=== PATIENT | male | born 1950 | race Caucasian/White ===

== ENCOUNTER 2021-02-10 16:56 | Inpatient (IN) | payer MEDICARE ==
[~2021-02-10] VITALS: Ht 170.2 cm; Wt 65.0 kg
[2021-02-10 17:17] VITALS: BP 90/41
--- NOTE | 2021-02-10 18:24 | NUR ---
MULTIPLE ATTEMPTS HAVE BEEN MADE TO ESTABLISH IV BY SEVERAL NURSES, PATIENT REFUSED ANY LONGER BUT STATES HE WANTS TO STAY AND AGREES TO NURSE LOOKING WITH ULTRASOUND. PATIENT REQUESTS ANOTHER SANDWICH AT THIS TIME. PATIENT AWAKE AND ALERT, NO DISTRESS NOTED. PATIENT KEEPS INSISTING ON NURSE TO TRY AND IV IN HIS LEG AND IS BEING LESS THAN COOPERATIVE AT THIS TIME AND NOT WANTING TO STAY ON THE MONITOR. NO DISTERSS NOTED
[2021-02-10 19:09] LABS: APTT 31.8 SECONDS (22.8-39.4); INR 1.15 (0.85-1.17); PROTIME 13.6 SECONDS (11.6-15.0)
[2021-02-10 19:16] LABS: BASOPHILS 0.2 % (0-2); HEMATOCRIT 32.1 % (42.0-54.0); HEMOGLOBIN 10.8 g/dL (13.5-17.5); IMMATURE GRANULOCYTES 0.2 % (0-5); LYMPHOCYTE ABS# 1.54 10x3/uL (1.32-3.57); LYMPHOCYTES 15.2 % (15-50); MCHC 33.6 g/dL (31.0-37.0); MCV 86.1 fL (80.0-100.0); MEAN PLATELET VOLUME 9.8 fL (7.4-10.4); MONOCYTES 8.2 % (2-11); NEUTROPHIL ABS# 7.51 10x3/uL (1.78-5.38); NEUTROPHILS 74.2 % (40-80); PLATELET COUNT 242 10x3/uL (130-400); RBC 3.73 10x6/uL (4.20-6.10); RDW 14.1 % (11.5-14.5); WBC 10.1 10x3/uL (4.8-10.8)
[2021-02-10 19:28] LABS: ALKALINE PHOSPHATASE 125 U/L (30-120); ALT (SGPT) 49 U/L (10-68); CALCIUM 8.2 mg/dL (8.5-10.1); CARBON DIOXIDE 26.2 mmol/L (21.0-32.0); CHLORIDE - SERUM 89 mmol/L (98-107); CKMB 11.5 U/L (0.0-3.6); CREATINE KINASE 357 UL (21-232); CREATININE - SERUM 1.2 mg/dL (0.6-1.3); GLUCOSE 110 mg/dL (74-106); MAGNESIUM - SERUM 1.9 mg/dL (1.8-2.4); POTASSIUM - SERUM 3.9 mmol/L (3.5-5.1); PROTEIN - SERUM 6.4 g/dL (6.4-8.2); THYROID STIMULATING HORMONE 3.21 uIU/mL (0.36-3.74); UREA NITROGEN 16 mg/dL (7-18); eGFR NON AFRICAN AMERICAN 64 mL/min (90-120)
[2021-02-10 19:33] LABS: CALC OSMOLALITY 241 mosm/kg (275-300); TROPONIN-I < 0.017 ng/mL (0.000-0.060)
[2021-02-10 19:36] LABS: SODIUM 119 mmol/L (136-145)
[2021-02-10 23:51] VITALS: BP 116/63
--- NOTE | 2021-02-11 03:22 | NUR ---
I have reviewed this patient and I concur with the Shift Assessment completed by the Licensed Practical Nurse today this shift.
[2021-02-11 03:45] VITALS: BP 114/67
[2021-02-11 05:09] LABS: BASOPHILS 0.2 % (0-2); EOSINOPHILS 2.9 % (0-7); HEMATOCRIT 32.4 % (42.0-54.0); HEMOGLOBIN 10.9 g/dL (13.5-17.5); IMMATURE GRANULOCYTES 0.2 % (0-5); LYMPHOCYTE ABS# 1.55 10x3/uL (1.32-3.57); LYMPHOCYTES 18.3 % (15-50); MCH 29.1 pg (26.0-34.0); MCHC 33.6 g/dL (31.0-37.0); MCV 86.4 fL (80.0-100.0); MEAN PLATELET VOLUME 9.8 fL (7.4-10.4); MONOCYTES 6.6 % (2-11); NEUTROPHIL ABS# 6.09 10x3/uL (1.78-5.38); NEUTROPHILS 71.8 % (40-80); PLATELET COUNT 226 10x3/uL (130-400); RBC 3.75 10x6/uL (4.20-6.10); RDW 14.3 % (11.5-14.5); RETIC 1.86 % (0.45-2.28); WBC 8.5 10x3/uL (4.8-10.8)
[2021-02-11 05:10] LABS: BILIRUBIN NEGATIVE (NEGATIVE); KETONE NEGATIVE (NEGATIVE); NITRITE NEGATIVE (NEGATIVE); UROBILINOGEN NORMAL mg/dL (< 2)
[2021-02-11 05:23] LABS: INR 1.14 (0.85-1.17); PROTIME 13.5 SECONDS (11.6-15.0)
[2021-02-11 05:41] LABS: UDS - AMPHET NEGATIVE QUAL (NEGATIVE); UDS - BARB NEGATIVE QUAL (NEGATIVE); UDS - BENZO NEGATIVE QUAL (NEGATIVE); UDS - COCAINE NEGATIVE QUAL (NEGATIVE); UDS - OPIATE NEGATIVE QUAL (NEGATIVE); UDS - PCP NEGATIVE QUAL (NEGATIVE); UDS - THC POSITIVE QUAL (NEGATIVE)
[2021-02-11 05:44] LABS: % SATURATION 10 % (15-55); IRON 31 ug/dl (35-150); TOTAL IRON BIND CAPACITY 296 ug/dl (260-445); UNSAT IRON BIND CAPACITY 265 ug/dl (150-375)
--- NOTE | 2021-02-11 06:19 | NUR ---
PT REFUSES TO WEAR TELEMETRY AND SCD'S AT THIS TIME. PT HAS LEFT FOOT IV AND SWOLLEN FEET. WILL CONTIONUE TO MONITOR.
[2021-02-11 06:20] LABS: ALBUMIN 2.7 g/dL (3.4-5.0); ALKALINE PHOSPHATASE 117 U/L (30-120); ALT (SGPT) 46 U/L (10-68); BILIRUBIN - TOTAL 0.48 mg/dL (0.2-1.3); CALC OSMOLALITY 245 mosm/kg (275-300); CALCIUM 7.6 mg/dL (8.5-10.1); CARBON DIOXIDE 23.8 mmol/L (21.0-32.0); CHLORIDE - SERUM 92 mmol/L (98-107); CHOL - HDL RATIO 2.1 ratio (2.3-4.9); CHOLESTEROL, TOTAL 113 mg/dL (0-200); CKMB 6.6 U/L (0.0-3.6); CREATINE KINASE 215 UL (21-232); CREATININE - SERUM 0.9 mg/dL (0.6-1.3); FERRITIN 155 ng/mL (3-244); GLUCOSE 78 mg/dL (74-106); HDL CHOLESTEROL 53 mg/dL (32-96); LDH 201 U/L (85-227); LDL CHOLESTEROL 51 mg/dL (0-100); PHOSPHOROUS 4.1 mg/dL (2.5-4.9); POTASSIUM - SERUM 3.9 mmol/L (3.5-5.1); PRO BNP 540 pg/mL (0-125); SODIUM 122 mmol/L (136-145); TRIGLYCERIDE 47 mg/dL (30-200); TROPONIN-I < 0.017 ng/mL (0.000-0.060); UREA NITROGEN 15 mg/dL (7-18); eGFR NON AFRICAN AMERICAN 89 mL/min (90-120)
--- NOTE | 2021-02-11 08:39 | NUR ---
PT LYING IN BED WITH EYES CLOSED, RR EVEN NON LABORED. AUDIBLE SNORING NOTED. PT AWAKENS TO STIMULI. NO NEEDS VOICED.CLWR.
[2021-02-11 08:59] VITALS: BP 138/61
[2021-02-11 10:56] VITALS: Ht 170.2 cm; Wt 65.0 kg
[2021-02-11 12:19] VITALS: BP 134/71
--- NOTE | 2021-02-11 13:04 | NUR ---
PT LYING ON LEFT SIDE, RR EVEN NON LABORED. AUDIBLE SNORING NOTED AT THIS TIME. PT APPEARS TO BE RESTING COMFORTABLY. CLWR.
--- NOTE | 2021-02-11 15:46 | NUR ---
PT LYING IN SUPINE POSITION, HOB RAISED, RR EVEN NON LABORED. NO NEEDS VOICED. CLWR.
[2021-02-11 17:41] VITALS: BP 136/78
--- NOTE | 2021-02-11 18:00 | NUR ---
PT REQUESTED NURSE FROM [facility] AT THIS TIME. WHEN ENTERING ROOM PT WAS CRYING AND UPSET. ATTEMPTED TO CONSOLE THE PT. PT INSISTED HE WANTED TO LEAVE. WHEN NURSE ASKED WHAT SHE COULD DO FOR THE PT HE RESPONDED, "GET ME SOMETHING SHARP" HE THEN STATED, "A RAZORBLADE." ASKED PT IF HAD INTENTIONS OF HARMING HIMSELF, PT STATES "ALL THE TIME" AND CHUCKLED WHILE CRYING. PT AMBULATING AND ATTEMPTING TO EXIT THE ROOM. MULTIPLE NURSES IN ROOM AT THIS TIME INCLUDING CHARGE NURSE. PT ASSISTED BACK IN ROOM INTO CHAIR, CONSOLED PT. BEHAVIORAL HEALTH NURSE NOTIFIED, KATHIE MARIE NOTIFIED ALSO.
--- NOTE | 2021-02-11 18:30 | NUR ---
BEHAVIORAL NURSE AND PCT AT BEDSIDE, ALL HAZARD OBJECTS AND CLOTHING REMOVED FROM ROOM. PT PLACED IN PAPER SCRUBS. NOTIFIED KATHIE MARIE REGARDING NEED FOR SITTER D/T SCREENED POSITIVE FOR SUICIDE RISK. NO FURTHER ORDERS AT THIS TIME.
--- NOTE | 2021-02-11 18:41 | NUR ---
DR. HERNDON NOTIFIED AND SITTER ORDERED. SITTER AT BEDSIDE. NOTIFIED CHARGE NURSE AND ATTENDING MD IN REGARDS TO ASSESSMENT FINDINGS. RESOURCES GIVEN AND PT REFUSED SAFETY PLAN X 3. PT STATES " I HAVE NO REASON TO LIVE."
--- NOTE | 2021-02-11 19:00 | NUR ---
LYING IN BED W/EYES CLOSED, RESP EVEN AND UNLABORED ON RA. NO DISTRESS NOTED. SITTER AT BEDSIDE FOR PT'S SUICIDE WATCH. NO DISTRESS NOTED AT THIS TIME.
[2021-02-11 21:10] VITALS: BP 146/85
--- NOTE | 2021-02-11 21:13 | NUR ---
PT AWAKE, ALERT, ORIENTED. PLEASENT--REFUSES TO HAVE IV RESTARTED--THIS NURSE VERBALLY EXPLAINS THE BENEFITS AND THE RISKS OF NOT HAVING TREATMENT PRESCRIBED W/PT UNDERSTANDING STATED--PT CONTINUES TO REFUSE. DENIES ANY FURTHER NEEDS. SITTER AT BEDSIDE FOR SUICIDE WATCH.
[2021-02-12 05:01] LABS: BASOPHILS 0.3 % (0-2); EOSINOPHILS 3.1 % (0-7); HEMATOCRIT 32.9 % (42.0-54.0); HEMOGLOBIN 10.8 g/dL (13.5-17.5); IMMATURE GRANULOCYTES 0.5 % (0-5); LYMPHOCYTE ABS# 1.26 10x3/uL (1.32-3.57); LYMPHOCYTES 20.7 % (15-50); MCH 29.3 pg (26.0-34.0); MCHC 32.8 g/dL (31.0-37.0); MEAN PLATELET VOLUME 9.9 fL (7.4-10.4); MONOCYTES 8.9 % (2-11); NEUTROPHIL ABS# 4.04 10x3/uL (1.78-5.38); NEUTROPHILS 66.5 % (40-80); PLATELET COUNT 185 10x3/uL (130-400); RBC 3.69 10x6/uL (4.20-6.10); RDW 14.5 % (11.5-14.5)
[2021-02-12 05:14] LABS: MCV 89.2 fL (80.0-100.0); WBC 6.1 10x3/uL (4.8-10.8)
--- NOTE | 2021-02-12 05:30 | NUR ---
LYING IN BED W/EYES CLOSED, RESP EVEN AND UNLABORED ON RA W/SNORRING NOTED. NO DISTRESS NOTED.
--- NOTE | 2021-02-12 05:32 | NUR ---
PT'S SUICIDE WATCH CONTINUES W/SITTER AT BEDSIDE. PT HAS RESTED WELL TONIGHT W/O EPISODES.
[2021-02-12 05:38] LABS: ALBUMIN 2.8 g/dL (3.4-5.0); ALKALINE PHOSPHATASE 124 U/L (30-120); ALT (SGPT) 47 U/L (10-68); BILIRUBIN - TOTAL 0.33 mg/dL (0.2-1.3); CALC OSMOLALITY 251 mosm/kg (275-300); CARBON DIOXIDE 23.8 mmol/L (21.0-32.0); CHLORIDE - SERUM 96 mmol/L (98-107); CREATININE - SERUM 0.8 mg/dL (0.6-1.3); GLUCOSE 79 mg/dL (74-106); PHOSPHOROUS 3.3 mg/dL (2.5-4.9); POTASSIUM - SERUM 4.1 mmol/L (3.5-5.1); PROTEIN - SERUM 6.3 g/dL (6.4-8.2); SODIUM 125 mmol/L (136-145); UREA NITROGEN 15 mg/dL (7-18); eGFR NON AFRICAN AMERICAN > 90 mL/min (90-120)
--- NOTE | 2021-02-12 07:30 | NUR ---
PT LYING IN BED WITH EYES CLOSED, RR EVEN NON LABORED ON ROOM AIR. PT APPEARS TO BE RESTING COMFORTABLY WITH AUDIBLE SNORING NOTED. SITTER AT BEDSIDE. WILL CONTINUE TO MONITOR.
[2021-02-12 08:00] VITALS: BP 137/77
--- NOTE | 2021-02-12 08:25 | NUR ---
PT SITTING ON SIDE OF BED EATING BREAKFAST. PT REQUESTED MORE MILK, EDUCATION PROVIDED REGARDING 1500ML FLUID RESTRICTION. PT NEEDS FURTHER INSTRUCTION. NO NEEDS VOICED, SITTER AT BEDSIDE. CLWR.
--- NOTE | 2021-02-12 09:38 | NUR ---
NOTIFIED DR LOMAX REGARDING PT REFUSING IV PLACEMENT. DR LOMAX REQUESTED PYSCH CONSULT BE PLACED D/T UNABLE TO TREAT HIS LOW SODIUM WITH IV FLUIDS AND TO ADD SALT TO MEALS. ORDER READ BACK AND VERIFIED.
--- NOTE | 2021-02-12 10:56 | NUR ---
PT DEMANDING PHONE AT THIS TIME. PT EXITED ROOM ASKING FOR A PHONE. EDUCATION GIVEN TO PT REGARDING WHY HE IS NOT ALLOWED TO HAVE A PHONE AT THIS TIME. PT AGGRAVATED AND ASSISTED BACK TO HIS ROOM.
--- NOTE | 2021-02-12 11:56 | NUR ---
PT LYING IN BED WITH HOB RAISED, PT RR EVEN NON LABORED. PT STATES HE WILL TAKE MEDICATION. PT SPOKE OF A PHONE BUT APPEARS LESS AGIGATED. PT AMBULATED TO RESTROOM. NO NEEDS VOICED. CLWR.
--- NOTE | 2021-02-12 14:36 | NUR ---
PT TOOK PO MEDICATION WITHOUT DIFFICULTY, PT AWAKE AND ALERT. PT LYING IN BED WITH HOB RAISED WATCHING TV, NO NEEDS VOICED. CLWR.
[2021-02-12 15:00] VITALS: BP 121/76
--- NOTE | 2021-02-12 15:38 | NUR ---
PT REQUESTED ATIVAN AT THIS TIME. PT LYING IN BED WATCHING TV. RR EVEN NON LABORED. PT WILL SLEEP FOR PERIODS OF TIME. PT TALKS ABOUT GETTING HELP AND GETTING HIM A PLACE TO GO. PT DENIES ANY NEEDS, CLWR.
--- NOTE | 2021-02-12 17:39 | NUR ---
PT SITTING UP IN BED EATING DINNER TRAY. RR EVEN NON LABORED. PT AWAKE AND ALERT, CALM AT THIS TIME. CLWR. SITTER AT BEDSIDE.
--- NOTE | 2021-02-12 19:00 | NUR ---
LYING IN BED W/EYES CLOSED, RESP EVEN AND UNLABORED ON RA. SITTER AT BEDSIDE FOR SUICIDE WATCH, NO DISTRESS NOTED.
[2021-02-12 22:31] VITALS: BP 152/81
--- NOTE | 2021-02-12 23:42 | NUR ---
SARA PARADA REPORTS PT FELL IN ROOM. SEE NOTES PLEASE. UPON ASSESSMENT OF PT--NO WOUNDS, BRUISES, FOUND ON. PT C/O PAIN TO LEFT FA--PT C/O PAIN TO THIS AREA EARLIER THIS JUANITA PRIOR TO FALLING AND NURSE GAVE TYLENOL FOR THAT. WILL CONTACT PT'S DOCTOR AND REPORT THE FALL, PT HAS NO FAMILY TO CONTACT.
--- NOTE | 2021-02-13 00:04 | NUR ---
CONTACTED KATHIE AND REPORTED PT'S FALL--REPORTED THAT PT NOW C/O PAIN WORSE TO LEFT FA AND ELBOW AREA. NEW ORDERS FOR XRAY OF LEFT FA AND ELBOW.
[2021-02-13 00:51] VITALS: BP 147/92
--- NOTE | 2021-02-13 01:14 | NUR ---
THIS NURSE RESPONDED TO PTS ROOM WHEN ALERTED BY PLATE DRILLER THAT SHE NEEDED HELP. UPON ENTERING THE ROOM, PT WAS OBSERVED ON THE FLOOR SITTING ON HIS BOTTOM WITH HIS LEGS OUT IN FRONT OF HIM. THE PLATE DRILLER STATED THAT HE SLID TO HIS BOTTOM WHILE TRYING TO SIT DOWN ON HIS BED. ASSESSED THE PT ON THE FLOOR, NO S/S OF TRAUMA OR INJURY OBSERVED. ASSISTED PT BACK TO BED. REASSESSED PT, NO S/S OF TRAUMA OR INJURY NOTED. PLATE DRILLER STATED THAT THE PT DID NOT HIT HIS HEAD DURING HIS FALL. NOTIFIED PTS NURSE OF INCIDENT.
[2021-02-13 04:54] VITALS: BP 148/94
[2021-02-13 05:23] LABS: BASOPHILS 0.3 % (0-2); EOSINOPHILS 2.7 % (0-7); HEMATOCRIT 35.5 % (42.0-54.0); HEMOGLOBIN 11.9 g/dL (13.5-17.5); IMMATURE GRANULOCYTES 0.5 % (0-5); LYMPHOCYTE ABS# 1.36 10x3/uL (1.32-3.57); LYMPHOCYTES 17.8 % (15-50); MCH 29.4 pg (26.0-34.0); MCHC 33.5 g/dL (31.0-37.0); MCV 87.7 fL (80.0-100.0); MEAN PLATELET VOLUME 9.9 fL (7.4-10.4); NEUTROPHIL ABS# 5.41 10x3/uL (1.78-5.38); NEUTROPHILS 70.7 % (40-80); PLATELET COUNT 210 10x3/uL (130-400); RBC 4.05 10x6/uL (4.20-6.10); RDW 14.1 % (11.5-14.5)
[2021-02-13 05:37] LABS: WBC 7.7 10x3/uL (4.8-10.8)
[2021-02-13 05:47] LABS: ALKALINE PHOSPHATASE 122 U/L (30-120); ALT (SGPT) 44 U/L (10-68); BILIRUBIN - TOTAL 0.43 mg/dL (0.2-1.3); CALC OSMOLALITY 249 mosm/kg (275-300); CALCIUM 8.4 mg/dL (8.5-10.1); CARBON DIOXIDE 26.5 mmol/L (21.0-32.0); CHLORIDE - SERUM 92 mmol/L (98-107); CREATININE - SERUM 0.7 mg/dL (0.6-1.3); GLUCOSE 80 mg/dL (74-106); MAGNESIUM - SERUM 1.8 mg/dL (1.8-2.4); PHOSPHOROUS 3.4 mg/dL (2.5-4.9); POTASSIUM - SERUM 4.2 mmol/L (3.5-5.1); PROTEIN - SERUM 6.7 g/dL (6.4-8.2); SODIUM 125 mmol/L (136-145); eGFR NON AFRICAN AMERICAN > 90 mL/min (90-120)
[2021-02-13 05:49] LABS: UREA NITROGEN 11 mg/dL (7-18)
--- NOTE | 2021-02-13 09:59 | NUR ---
Nutrition Follow-up: Eating well. Noted pt NPO p MN for L ulna ORIF. Diet: Regular, 1500 mL fluid restriction PO intake: 92% avg x 6 meals (02/11-02/12) No new wt; last wt: 150# (02/11) Labs noted: Na 125, Ca 8.4, Alb 3.0 Meds noted: sodium chloride, Protonix, NS @ 75, electrolyte protocol -RD will follow up within 7 days if pt still admitted.
[2021-02-13 10:19] VITALS: BP 139/82
[2021-02-13 12:49] VITALS: BP 165/94
[2021-02-13 16:24] VITALS: BP 152/91
--- NOTE | 2021-02-13 17:46 | NUR ---
HALDOL 5MG/ATIVAN 2MG GIVEN IM TO RIGHT DELTOID. PT REQUESTING TO LEAVE SO HE CAN GO OUTSIDE TO SMOKE A CIGARETTED & SOME POT, MAYBE DRINK A FEW BEERS & THEN HE WOULDBE BACK TOMORROW FOR HIS SURGERY. UNSTEADY GAIT WITH AMBULATION TO RESTROOM. HAD TO SIT TO USE THE BATHROOM. SITTER REMAINS AT BEDSIDE FOR SUICIDE WATCH.
--- NOTE | 2021-02-13 19:04 | NUR ---
LYING IN BED W/EYES CLOSED, RESP EVEN AND UNLABORED ON RA. SITTER SITTING AT DOOR--PT ON SUICIDE WATCH AND FALL PREC. NO DISTRESS NOTED.
[2021-02-13 20:00] VITALS: BP 148/90
[2021-02-14 03:00] VITALS: BP 150/93
--- NOTE | 2021-02-14 03:25 | NUR ---
EKG COMPLETED AT THIS TIME FOR PT'S ORIF THIS AM.
--- NOTE | 2021-02-14 04:45 | NUR ---
BRICK HANDLER GIVING PT CHG BATH AT THIS TIME FOR ORIF TODAY.
[2021-02-14 05:05] LABS: BASOPHILS 0.4 % (0-2); EOSINOPHILS 1.7 % (0-7); HEMATOCRIT 35.5 % (42.0-54.0); HEMOGLOBIN 12.2 g/dL (13.5-17.5); IMMATURE GRANULOCYTES 0.4 % (0-5); LYMPHOCYTE ABS# 1.12 10x3/uL (1.32-3.57); LYMPHOCYTES 14.4 % (15-50); MCH 29.8 pg (26.0-34.0); MCHC 34.4 g/dL (31.0-37.0); MCV 86.6 fL (80.0-100.0); MEAN PLATELET VOLUME 9.4 fL (7.4-10.4); NEUTROPHIL ABS# 5.91 10x3/uL (1.78-5.38); NEUTROPHILS 76.1 % (40-80); WBC 7.8 10x3/uL (4.8-10.8)
[2021-02-14 05:36] LABS: PLATELET COUNT 262 10x3/uL (130-400)
--- NOTE | 2021-02-14 05:49 | NUR ---
LYING IN BED W/EYES CLOSED, RESP EVEN AND UNLABORED ON RA. AROUSED EASILY W/VERBAL STIMULI. IV STARTED TO RIGHT UPPER ARM W/20GA X'S 2 STICKS. PT TOLERATED ALL WELL. NO DISTRESS NOTED.
--- NOTE | 2021-02-14 06:02 | NUR ---
PT SCREAMING AND BEING DISRUPTIVE. ATTEMPTING TO DRINK WATER FROM THE SHOWER. PT CURSING AT STAFF TELLING THEM TO "FUCK OFF". PT HAS BEEN NPO FOR A SHOULDER PROCEDURE THIS AM. DIFFICULT TO CALM DOWN DESPITE HAVING A SITTER AT BEDSIDE FOR SAFETY.
[2021-02-14 06:03] LABS: ALBUMIN 3.1 g/dL (3.4-5.0); ALKALINE PHOSPHATASE 128 U/L (30-120); ALT (SGPT) 42 U/L (10-68); CALC OSMOLALITY 243 mosm/kg (275-300); CALCIUM 8.4 mg/dL (8.5-10.1); CARBON DIOXIDE 26.4 mmol/L (21.0-32.0); CHLORIDE - SERUM 88 mmol/L (98-107); GLUCOSE 88 mg/dL (74-106); MAGNESIUM - SERUM 1.8 mg/dL (1.8-2.4); PROTEIN - SERUM 7.1 g/dL (6.4-8.2); SODIUM 122 mmol/L (136-145); UREA NITROGEN 11 mg/dL (7-18); eGFR NON AFRICAN AMERICAN 89 mL/min (90-120)
--- NOTE | 2021-02-14 06:12 | NUR ---
PT MORE CALM AT THIS TIME, LYING IN BED EYES CLOSED, RESP EVEN AND UNLABORED ON RA. NO DISTRESS NOTED AT THIS TIME, SITTER AT BEDSIDE.
[2021-02-14 06:15] LABS: CREATININE - SERUM 0.9 mg/dL (0.6-1.3); PHOSPHOROUS 4.4 mg/dL (2.5-4.9)
[2021-02-14 07:58] VITALS: BP 123/74
[2021-02-14 10:47] VITALS: BP 136/80
--- NOTE | 2021-02-14 13:27 | NUR ---
OR HERE TO TRANSPORT PT TO HOLDING. WISHED WELL NO PRE OP ORDERS IN CHART. STAFF NOTIFIED.
[2021-02-14 20:05] VITALS: BP 119/47
[2021-02-14 23:32] VITALS: BP 120/73
[2021-02-15 04:31] VITALS: BP 156/88
--- NOTE | 2021-02-15 05:03 | NUR ---
PIV TO RIGHT UPPER ARM INFILTRATED. PT DENIES PAIN TO SITE BUT REDNESS AND EDEMA NOTED. MULTIPLE ATTEMPTS MADE TO REESTABLISH IV ACCESS INCLUDING ICU AND PRODUCTION WOOD CRAFTSMAN BUT WERE UNSUCCESSFUL. 1:1 SITTER REMAINS AT BEDSIDE FOR SI PRECAUTIONS. EDUCATED PT ON KEEPING LEFT ARM IN SLING. PT FLAILS IT ABOUT. PT HAS URINATED MULTIPLE TIMES POST PROCEDURE. NO S/S OF DISTRESS OBSERVED. CL IN REACH AND BEING UTALIZED.
--- NOTE | 2021-02-15 05:15 | NUR ---
PT TELLING MULTIPLE NURSES WHEN TRYING TO RESITE IV OF THE IV DRUGS PT USED TO DO AND HIS PREFERED PLACES. PT STATED THE DILAUDID REMIINDED HIM OF HEROIN. NO FURTHER VOICED C/O OTHER THEN LEFT ARM PAIN. CL IN REACH.
--- NOTE | 2021-02-15 07:00 | NUR ---
PT RESTING IN BED WITH EYES OPEN WATCHING TV. ALERT BUT CONFUSED. NO CURRENT S/S OF DISTRESS AT THIS TIME. BREATHING EVEN AND NONLABORED. DENIES CURRENT NEEDS AT THIS TIME, WILL CONT TO MONITOR.
[2021-02-15 07:01] LABS: BASOPHILS 0 % (0-2); EOSINOPHILS 0.3 % (0-7); HEMATOCRIT 35.7 % (42.0-54.0); HEMOGLOBIN 12.1 g/dL (13.5-17.5); IMMATURE GRANULOCYTES 0.3 % (0-5); LYMPHOCYTE ABS# 0.89 10x3/uL (1.32-3.57); LYMPHOCYTES 7.1 % (15-50); MCH 29.7 pg (26.0-34.0); MCHC 33.9 g/dL (31.0-37.0); MCV 87.7 fL (80.0-100.0); MEAN PLATELET VOLUME 8.9 fL (7.4-10.4); MONOCYTES 7.5 % (2-11); NEUTROPHIL ABS# 10.67 10x3/uL (1.78-5.38); NEUTROPHILS 84.8 % (40-80); PLATELET COUNT 280 10x3/uL (130-400); RBC 4.07 10x6/uL (4.20-6.10); RDW 14.1 % (11.5-14.5)
[2021-02-15 07:16] LABS: WBC 12.6 10x3/uL (4.8-10.8)
--- NOTE | 2021-02-15 07:31 | NUR ---
ASSISTED PT TO BATHROOM, BACK TO BED.
[2021-02-15 08:12] LABS: ALBUMIN 3.5 g/dL (3.4-5.0); ALKALINE PHOSPHATASE 145 U/L (30-120); ALT (SGPT) 48 U/L (10-68); BILIRUBIN - TOTAL 0.42 mg/dL (0.2-1.3); CALC OSMOLALITY 255 mosm/kg (275-300); CALCIUM 9.1 mg/dL (8.5-10.1); CARBON DIOXIDE 25.9 mmol/L (21.0-32.0); CHLORIDE - SERUM 93 mmol/L (98-107); CREATININE - SERUM 0.9 mg/dL (0.6-1.3); GLUCOSE 114 mg/dL (74-106); MAGNESIUM - SERUM 2.2 mg/dL (1.8-2.4); PHOSPHOROUS 5.3 mg/dL (2.5-4.9); PROTEIN - SERUM 7.2 g/dL (6.4-8.2); SODIUM 125 mmol/L (136-145); UREA NITROGEN 20 mg/dL (7-18); eGFR NON AFRICAN AMERICAN 89 mL/min (90-120)
[2021-02-15 08:13] LABS: POTASSIUM - SERUM 5.4 mmol/L (3.5-5.1)
--- NOTE | 2021-02-15 08:53 | NUR ---
PT REPORTS PAIN 8/10, ADMINISTERED PAIN MEDS PER S ORDERS. WILL CONT TO MONITOR.
[2021-02-15 09:37] VITALS: BP 132/78
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
--- NOTE | 2021-02-15 13:59 | NUR ---
ADMINISTERED MEDICATION, NO DIFFICULTIES. PRN NORCO FOR 8/10 PAIN IN ARM. PT UP GETTING IN SHOWER. AMUBALTES WELL. DENIES ANY OTHER NEEDS AT THIS TIME. STILL SITTING AT BEDSIDE. WILL CONTINUE POC.
--- NOTE | 2021-02-15 14:41 | NUR ---
PT OUT OF SHOWER, ANGRY AND YELLING SAYING "Y'ALL WONT DO SHIT FOR ME, I'M HURTING NOBODY CARES." I TRIED TO EXPLAIN TO PT THAT HE NEEDED TO COME OUT OF BATHROOM TO TALK TO ME. EXPLAINED HE JUST GOT A PAIN PILL. GOT ANGRY AND LOCKED THE BATHROOM DOOR, REFUSED TO OPEN IT. "I'LL JUST KILL MYSELF HOW ABOUT THAT." FINALLY OPENED BATHROOM DOOR. SARA BRAMBILA CAME IN ROOM AND TALKED PT BACK DOWN. EXPLAINED EVERYTHING I ALREADY EXPLAINED AND GOT PT BACK IN BED. REWRAPPED ARM WITH ESTRADA BANDAGE LOOSELY TO PATIENTS LIKING. RESTING IN BED, CALM AT THE MOMENT. WILL CONTINUE POC.
[2021-02-15] MEDS ORDERED: HYDROCODON-ACE1 EA10 PO (16:02)
[2021-02-15] MEDS ORDERED: ACETAMINOPHEN500 M1 PO (16:02)
[2021-02-15] MEDS ORDERED: ANCEF 1 GM/D5W 51 G1 IVPB (16:02)
[2021-02-15] MEDS ORDERED: ALBUTEROL2.5 MG/3 M UPD (16:03)
[2021-02-15] MEDS ORDERED: COLACE100 MG PO (16:03)
[2021-02-15] MEDS ORDERED: ATIVAN1 MG PO (16:03)
[2021-02-15] MEDS ORDERED: ATIVAN IM (16:03)
[2021-02-15] MEDS ORDERED: HALDOL5 MG PO (16:03)
[2021-02-15] MEDS ORDERED: THERMOTABS 1 GM1 GM PO (16:03)
[2021-02-15] MEDS ORDERED: HALDOL5 MG/ML IM (16:03)
[2021-02-15] MEDS ORDERED: PROTONIX40 MG PO (16:04)
--- NOTE | 2021-02-15 16:40 | NUR ---
IV REMOVED FROM RIGHT UPPER ARM, CATHETER TIP INTACT, COVERED WITH GAUZE AND TAPE. TOLERATED WELL. SIGNED D/C PAPERWORK DUE PT BEING PSYCH AND UNABLE/NOT AGREEABLE TO SIGN FOR SELF.
--- NOTE | 2021-02-15 16:52 | NUR ---
MEDICATED PT BEFORE TRANSFERRING DOWN TO PSYCH. UPRIGHT ON BEDSIDE EATING DINNER.
--- NOTE | 2021-02-15 16:59 | NUR ---
REPORT CALLED TO PSYCH NURSE. WILL TRANSFER WHEN DONE WITH DINNER AND SECURITY ARRIVES.
== END 2021-02-15 17:43 | DRG 641 ==
LOC: D.ER 16:56 → D.M2 20:36
PROVIDERS: Family Medicine; ADMIT Family Medicine; ATTEND Family Medicine
DX: E87.1 Hypo-osmolality and hyponatremia (principal); I95.9 Hypotension, unspecified; D64.9 Anemia, unspecified; R55 Syncope and collapse; Z86.73 Personal history of transient ischemic attack (TIA), and cerebral infarction without residual deficits; F03.90 Unspecified dementia, unspecified severity, without behavioral disturbance, psychotic disturbance, mood disturbance, and anxiety

== ENCOUNTER 2021-02-15 17:06 | Inpatient (IN) | payer MEDICARE ==
[~2021-02-15 17:06] MED LIST: ACETAMINOPHEN500 M1 PO; ALBUTEROL2.5 MG/3 M UPD; ANCEF 1 GM/D5W 51 G1 IVPB; ATIVAN IM; ATIVAN1 MG PO; COLACE100 MG PO; HALDOL5 MG PO; HALDOL5 MG/ML IM; HYDROCODON-ACE1 EA10 PO; PROTONIX40 MG PO; THERMOTABS 1 GM1 GM PO
--- NOTE | 2021-02-15 18:25 | NUR ---
Rec'd report from Med 2 at facility. Report rec'd that patient is a 70 year old. admitted for Hyponatremia and had a fall yest with a FX ulna that has been repaired. He takes [place] po q. 4 hour for pain. He denies any suicidal ideations or self harm at this time but did make comments of suicide threats when he learned of possible discharge. He was given Ativan and Haldol before transfer to halfway. He is on a 1500 no free water restriction. He was oriented to his room, bed controls, meal times, and to this unit. He arrived to unit at approx 1715. He was calm and coorperative with care and the transition of care.
[2021-02-15 20:00] VITALS: BP 115/79
--- NOTE | 2021-02-15 21:30 | NUR ---
RECEIVED PATIENT ON UNIT, HE WAS WALKING AROUND SOME. HE DENIES SUICIDIAL IDEATION AT THIS TIME, NO AGRESSION NOTED. WILL FOLLOW POC
[2021-02-15 22:24] VITALS: BP 115/79; BMI 23.6
[2021-02-16 05:46] LABS: BASOPHILS 0.3 % (0-2); HEMATOCRIT 33.8 % (42.0-54.0); HEMOGLOBIN 11.2 g/dL (13.5-17.5); IMMATURE GRANULOCYTES 0.2 % (0-5); LYMPHOCYTE ABS# 1.78 10x3/uL (1.32-3.57); LYMPHOCYTES 20.7 % (15-50); MCH 29.6 pg (26.0-34.0); MCHC 33.1 g/dL (31.0-37.0); MCV 89.2 fL (80.0-100.0); MEAN PLATELET VOLUME 9.2 fL (7.4-10.4); NEUTROPHILS 68.8 % (40-80); RBC 3.79 10x6/uL (4.20-6.10); RDW 14.5 % (11.5-14.5)
[2021-02-16 05:48] LABS: PLATELET COUNT 221 10x3/uL (130-400); WBC 8.6 10x3/uL (4.8-10.8)
[2021-02-16 06:39] LABS: ALKALINE PHOSPHATASE 127 U/L (30-120); ALT (SGPT) 44 U/L (10-68); BILIRUBIN - TOTAL 0.33 mg/dL (0.2-1.3); CALC OSMOLALITY 258 mosm/kg (275-300); CALCIUM 8.4 mg/dL (8.5-10.1); CARBON DIOXIDE 26.7 mmol/L (21.0-32.0); CHLORIDE - SERUM 96 mmol/L (98-107); CHOL - HDL RATIO 2.5 ratio (2.3-4.9); CHOLESTEROL, TOTAL 134 mg/dL (0-200); CREATININE - SERUM 0.8 mg/dL (0.6-1.3); GLUCOSE 87 mg/dL (74-106); HDL CHOLESTEROL 53 mg/dL (32-96); LDL CHOLESTEROL 71 mg/dL (0-100); LDL-HDL RATIO 1.3 ratio (1.5-3.5); PROTEIN - SERUM 6.7 g/dL (6.4-8.2); SODIUM 128 mmol/L (136-145); TRIGLYCERIDE 54 mg/dL (30-200); UREA NITROGEN 21 mg/dL (7-18); eGFR NON AFRICAN AMERICAN > 90 mL/min (90-120)
[2021-02-16 06:41] LABS: POTASSIUM - SERUM 4.5 mmol/L (3.5-5.1)
[2021-02-16 09:53] VITALS: BP 130/70
--- NOTE | 2021-02-16 11:45 | NUR ---
RECEIVED PATIENT IN BED WITH EYES CLOSED. RESPONDS TO VERBAL STIMULI. CALM AND COOPERATIVE WITH ASSESSMENT AT THIS TIME. PRESCRIBED MEDICATIONS PROVIDED ORDERED. MED COMPLIANT. NO AGGRESSION NOTED AT THIS TIME. PATIENT DENIES SUICIDAL IDEATION AT THIS TIME. FALL PRECAUTIONS IN PLACE FOR SAFETY. WILL CONTINUE PLAN OF CARE.
[2021-02-16 19:30] VITALS: BP 107/62
--- NOTE | 2021-02-16 21:09 | NUR ---
RECEIVED PATIENT IN [facility], HE IS SOCIALIZING WITH PEERS. COMPLIANT WITH MEDS, DENIES SUICIDIAL IDEATION. WILL FOLLOW POC
[2021-02-17 09:15] VITALS: Wt 69.2 kg
[2021-02-17 09:53] LABS: CALC OSMOLALITY 265 mosm/kg (275-300); CALCIUM 8.7 mg/dL (8.5-10.1); CARBON DIOXIDE 27.8 mmol/L (21.0-32.0); CHLORIDE - SERUM 95 mmol/L (98-107); POTASSIUM - SERUM 4.1 mmol/L (3.5-5.1); SODIUM 131 mmol/L (136-145); UREA NITROGEN 16 mg/dL (7-18); eGFR NON AFRICAN AMERICAN 79 mL/min (90-120)
[2021-02-17 09:57] LABS: GLUCOSE 134 mg/dL (74-106)
[2021-02-17 11:59] VITALS: BP 113/70
--- NOTE | 2021-02-17 12:01 | PSY ---
PATIENT NAME:ATILIO HIRSCH MEDICAL RECORD: [id number] : 51 LOCATION:[facility] ADMISSION DATE: 02/15/21 ACCOUNT: [id number] PSYCHIATRIC EVALUATION DATE OF EVALUATION: 02/16/21 IDENTIFYING DATA: Mr. Hirsch is a 70-year-old male that appears older than his stated age and is admitted voluntarily. HISTORY OF PRESENT ILLNESS: The patient was admitted to inpatient medical for hyponatremia and hypotensive, and then his CT of the head showed an old right occipital infarct. Our psychiatric was consulted related to his altered mental status. The patient became medically stable and then he went into the bathroom and he attempted to wrap the call light cord around his neck and he stated that he wanted to and then he said that he also intended to hurt his arm that was just recently had surgical procedure on, by grabbing at the door so that staff could not come in. He also had increased aggressive behavior and so because of his suicidal gesture and altered mental status, the patient was admitted to psychiatric care. PAST PSYCHIATRIC HISTORY: The patient states that he has a history of PTSD and he was a and served in the [employer]. The patient states that he has been to the [facility]. Vascular dementia with behavioral disturbances. PAST MEDICAL HISTORY: Includes a stroke, hyponatremia, syncope, fracture of the shaft of the left ulna. MEDICATIONS: At the time of admission; the patient was on Tylenol 500 mg p.o. q.6, hydrocodone or [place] 10/325, albuterol sulfate, Haldol injectable for aggression, Ativan for agitation and anxiety, salt tablets, Colace, and Protonix. FAMILY HISTORY: None is known. SOCIAL HISTORY: The patient appears to be homeless. He does have a history of marijuana use. The patient is pretty guarded, has 2 family members, is a [place] vet. Does use tobacco. History of emotional trauma. ALLERGIES: No known allergies. REVIEW OF SYSTEMS: Noncontributory. MENTAL STATUS: The patient is moderately disheveled. He is alert and oriented to person, somewhat to place, disoriented to time and has poor insight into situation he can be easily agitated. His associations are loose and he has fair eye contact. The patient has suicidal ideation. No tremors were noted. The patient does not appear to be attending to visual or auditory hallucinations. His judgment is poor. The patient has been limited abstract ability. Memory and concentration are poor. His strengths are his ability to communicate his needs and his weaknesses is psychosocial stressors. DIAGNOSES: AXIS I: Vascular dementia, post-traumatic stress disorder. AXIS II: Deferred. AXIS III: Cerebrovascular accident, hyponatremia. AXIS IV: Moderate. AXIS V: 35. PLAN: At this time, the patient is going to be admitted to the hospital for comprehensive medical, psychological, and social evaluation. He will be treated with mood and thought stabilizing medications and memory enhancing. His long-term prognosis is guarded. Dictated By: Jacinta Bermudez APN I have interviewed/examined the above patient and agree with these documented findings. TRANSINT:[id number] Voice Confirmation ID: [id number] DOCUMENT ID: [id number] Dictated By: JACINTA BERMUDEZ I have interviewed/examined the above patient and agree with these documented findings. RAFY HERNDON MD at 1201 CC: [id number] DICTATION DATE: 02/16/21 1103 OPTICAL GLASS INSPECTOR: 02/16/21 1225 [facility] [place] [address] [place] [address]
--- NOTE | 2021-02-17 15:50 | NUR ---
RECEIVED PATIENT IN ROOM RESTING WITH EYES CLOSED. RESPONDS TO VERBAL STIMULI. ASSESSMENT COMPLETED. PRESCRIBED MEDICATIONS PROVIDED ORDERED. MED COMPLIANT AT THIS TIME. MATIENT CAN BECOME EASILY AGITATED WITH STAFF UPON REDIRECTION. PATIENT DID COME OUT TO THE NURSES STATION AND DEMANDED PAY PER CLICK STRATEGIST TO CALL HIS STEEL CHIPPER AT THIS TIME. STAFF UNABLE TO REASON WITH PATIENT AT THIS TIME. PATIENT WALKED BACK TO PATIENT'S ROOM. PATIENT THREW LUNCH TRAY AT STAFF AND THEN SLAMMED DOOR AT THIS TIME. STAFF UNABLE TO REDIRECT AT THIS TIME. ATIVAN 0.5 MG IM AND HALDOL 2 MG IM ADMINISTERED PER NEEDED ORDER. REDIRECT AND REORIENT NEEDED. FALL PRECAUTIONS IN PLACE FOR SAFETY. WILL CONTINUE PLAN OF CARE.
--- NOTE | 2021-02-17 15:56 | NUR ---
NEEDED MEDICATION EFFECTIVE AT THIS TIME. PATIENT IS RESTING QUIETLY IN BED. NO SIGNS AND SYMPTOMS OF DISTRESS NOTED. FALL PRECAUTIONS IN PLACE FOR SAFETY. WILL CONTINUE PLAN OF CARE.
[2021-02-17 22:10] VITALS: BP 127/63
--- NOTE | 2021-02-17 23:17 | NUR ---
PT IS ALERT AND ORIENTED X4. RECEIVED IN HIS ROOM. CALM AND COOPERATIVE WITH STAFF. SHOWER PROVIDED. STITCHES TO RIGHT FOREARM NO S/S OF INFECTION. HYPER-ANABAPTIST PRAYING OVER STAFF. NO AGGRESSION NOTED. DENIES SI. EASY TO REDIRECT. MONITOR FOR SAFETY.
--- NOTE | 2021-02-18 02:30 | NUR ---
PT LYING IN BED AND STARTED TO YELL OUT. WHEN APPROACHED ROOM PATIENT WAS SIDEWAYS IN THE BED AND TOLD STAFF "DON'T TOUCH ME, LEAVE ME THE FUCK ALONE. LEAVE ME ALONE." APPROACHED PATIENT AND HE RELATED HE WAS HAVING A NIGHTMARE DUE TO HIS PTSD. ASSISTED TO BATHROOM AND PT WAS COMPLAINING OF HIS LEFT ARM HURTING WHICH HE RECENTLY HAD FRACTURED RESULTING IN SURGERY INCLUDING PLACEMENT OF PENS AND SCREWS. PATIENT BACK TO BED AND BEGAN RELATING HE WAS SEEING DOUBLE. HE WAS SEEING TWO CLOCKS AND 4 METAL PLATES ON THE WALL. TALKING OF SMOKING "WEED" AND HE DOES NOT HAVE NIGHTMARES HOWEVER IT HAD BEEN AWHILE SINCE HE HAD TAKEN ANY "HITS." THEN WAS COMPLAINING OF STARVING STATING "I HAVEN'T HAD ANYTHING TO EAT IN 2 DAYS" HOWEVER HIS INTAKE SHOWED HE ATE 100% OF BREAKFAST, LUNCH, DINNER AND HS SNACK. SPRITE AND OATMEAL PREPARED AND TAKEN TO PATIENT. PATIENT TOLD NURSE WHEN SHE TOOK HIM SOMETHING TO EAT "IF I'M HAVING A NIGHTMARE NEVER TOUCH ME. DON'T TOUCH ME." PT IS EATING OATMEAL AT THIS TIME. TYLENOL 650MG PO ADMINISTERED PO FOR C/O ARM PAIN 07/08. VS OBTAINED HR 71 BP 127/76 O2 SAT 97%.
--- NOTE | 2021-02-18 03:14 | NUR ---
PT IS CURRENTLY LYING IN BED WITH EYES CL0SED AND NO DISTRESS NOTED.
[2021-02-18 05:45] LABS: CALC OSMOLALITY 270 mosm/kg (275-300); CALCIUM 8.4 mg/dL (8.5-10.1); CARBON DIOXIDE 24.3 mmol/L (21.0-32.0); CHLORIDE - SERUM 100 mmol/L (98-107); CREATININE - SERUM 0.9 mg/dL (0.6-1.3); GLUCOSE 108 mg/dL (74-106); POTASSIUM - SERUM 4.6 mmol/L (3.5-5.1); SODIUM 134 mmol/L (136-145); UREA NITROGEN 18 mg/dL (7-18); eGFR NON AFRICAN AMERICAN 89 mL/min (90-120)
--- NOTE | 2021-02-18 06:06 | NUR ---
REASSESSED PATIENT NEURO STATUS. DENIES SEEING DOUBLE. RELATES "IT JUST WENT AWAY." NO C/O VOICED.
[2021-02-18 08:00] VITALS: BP 136/73
--- NOTE | 2021-02-18 12:00 | NUR ---
RECEIVED PATIENT IN HALLWAY SOCIALIZING WITH PEERS. CALM AND COOPERATIVE WITH ASSESSMENT AT THIS TIME. PRESCRIBED MEDICATIONS PROVIDED ORDERED. MED COMPLIANT. PATIENT DENIES SUICIDAL IDEATION AT THIS TIME. PATIENT TENDS TO BECOME VERY AGITATED UPON REDIRECTION AT TIMES WITH STAFF. PATIENT REQUESTED TO CONTACT HIS SANDER OPERATOR TODAY. STAFF EXPLAINED TO PATIENT THE SOURCING COORDINATOR CONTACTED SANDER OPERATOR YESTERDAY AND LEFT VOICEMAIL PER REQUEST. STAFF DOES NOT HAVE THE [place] PHONE NUMBER. PATIENT STATED " OKAY THANK YOU." FALL PRECAUTIONS IN PLACE FOR SAFETY. WILL CONTINUE PLAN OF CARE.
--- NOTE | 2021-02-18 14:15 | NUR ---
Patient very agitated at this time punching counters, halls, slamming doors while yelling at staff. Staff Unable to redirect at this time. As needed medication Ativan 0.5 mg IM and Haldol 2 mg IM given per order. Dr. Meyers present at this time. Will continue to monitor for any changes of behavior at this time.
--- NOTE | 2021-02-18 14:30 | NUR ---
PATIENT REMOVED CAST FROM ARM. STATED HE DIDN'T WANT IT ON ANYMORE.
--- NOTE | 2021-02-18 15:24 | PN ---
PATIENT:ATILIO DURANT MEDICAL RECORD: [id number] LOCATION:[facility] ADMISSION DATE: 02/15/21 PROGRESS NOTE DATE OF SERVICE: 02/17/2021 SUBJECTIVE: The patient's case was discussed with staff. He has no new complaint. OBJECTIVE: The patient is in good behavioral control, but easily irritated. ASSESSMENT: Dementia. PLAN: Current medicines have been reviewed and will be maintained. His long-term prognosis is guarded. TRANSINT:[id number] Voice Confirmation ID: [id number] DOCUMENT ID: [id number] RAFY HERNDON MD at 1524 CC: [id number] DICTATION DATE: 02/17/21 1647 PRINCIPAL INVESTIGATOR: 02/18/21 0102 ADM IN [place] [id number] [place] [address]
--- NOTE | 2021-02-18 15:25 | NUR ---
Patient continued to be aggressive with staff and Dr. Meyers at this time. Patient is yelling and demanding to leave the unit at this time. Pt. is demanding staff to discharge him to the [facility] within 20 minutes. Patient continues to beat on the exit doors. Patient is attempting to escape through the exit doors at this time. Staff unable to redirect patient at this time. Patient continues to yell and curse at staff. pt is punching frye and slamming doors as well. Pt pacing back and forth. Patient is very argumentative with Dr. Meyers and staff at at this time. Security called for safety at this time. Geodon 20 mg IM given per order. Will continue to monitor for behaviors and signs and symptoms of distress noted.
--- NOTE | 2021-02-18 17:00 | NUR ---
As needed medications affected at this time. Patient apologized to social services analyst. Patient is calm and cooperative with staff at this time. Patient is resting in bed with his eyes closed. Responds to verbal stimuli. No other behaviors noted at this time. Will continue to monitor.
--- NOTE | 2021-02-18 20:10 | NUR ---
PATIENT RECEIVED LYING IN BED IN HIS ROOM. AROUSED EASILY TO VERBAL STIMULI. CALM AND COOPERATIVE WITH ASSESSMENT. PATIENT IS COMPLIANT WITH MEDICATIONS. NO FURTHER BEHAVIORS NOTED. WILL FOLLOW POC.
[2021-02-18 20:16] VITALS: BP 153/85
--- NOTE | 2021-02-19 00:41 | NUR ---
PATIENT AWAKENED WITH A NIGHTMARE. GETTING UPSET AND AGITATED WITH DR. HERNDON FOR NOT SENDING HIM TO [facility] TODAY AND THREATENED TO KILL HIM IF HE SEES HIM AGAIN. HE ALSO TRIED TO BRIBE MHT TO CALL AN BENCH SCIENTIST FOR HIM. HALDOL 2 MG AND ATIVAN 0.5 MG IM GIVEN FOR ANXIETY AND AGGITATION.
[2021-02-19 08:00] VITALS: BP 106/64
--- NOTE | 2021-02-19 09:23 | NUR ---
NURSE CALLED DR. KILPATRICK TO OBTAIN AN ORDER TO DRAW BLOOD FOR LAB DRAWS FROM PATIENT FOOT DUE TO POOR VEINS IN BILATERAL ARMS. ORDER IN COMPUTER AND NOTIFIED LAB AT THIS TIME.
[2021-02-19 09:43] LABS: CALC OSMOLALITY 272 mosm/kg (275-300); CALCIUM 8.4 mg/dL (8.5-10.1); CARBON DIOXIDE 23.8 mmol/L (21.0-32.0); CHLORIDE - SERUM 102 mmol/L (98-107); CREATININE - SERUM 0.9 mg/dL (0.6-1.3); GLUCOSE 142 mg/dL (74-106); POTASSIUM - SERUM 4.1 mmol/L (3.5-5.1); SODIUM 135 mmol/L (136-145); UREA NITROGEN 15 mg/dL (7-18); eGFR NON AFRICAN AMERICAN 89 mL/min (90-120)
--- NOTE | 2021-02-19 15:18 | PN ---
PATIENT:ATILIO DURANT MEDICAL RECORD: [id number] LOCATION:[facility] ADMISSION DATE: 02/15/21 PROGRESS NOTE DATE OF SERVICE: 02/18/2021 SUBJECTIVE: The patient's case was discussed with staff. OBJECTIVE: The patient is partially oriented and extremely confused. He makes numerous demands some of which are contradictory and then becomes extremely angry if his orders are not followed immediately. Today, he is demanding that we call a DE transport service to take him to the DE because we do not have a television in his room. While trying to explain why that is not an appropriate reason for transfer and that it is a standard and behavioral unit is not tell me of television sets, he becomes angry uses a great deal of profanity, slams the door, hit his fist on the wall, and tells me that someday he is going to graham me down and kill me. ASSESSMENT: Vascular dementia. PLAN: The patient is going to be treated with Geodon on a scheduled and p.r.n. basis. He is not capable of making reasonable informed consent decisions. He has an advanced dementia and is in need of supervision. TRANSINT:[id number] Voice Confirmation ID: [id number] DOCUMENT ID: [id number] RAFY HERNDON MD at 1518 CC: [id number] DICTATION DATE: 02/18/21 1552 MOLDER INFLATED BALL: 02/18/21 2326 ADM IN [facility] [address] [place] [address]
--- NOTE | 2021-02-19 15:36 | NUR ---
Nutrition Follow-up: Diet: Regular 1500mL fluid restriction PO intake: 100% x last 6 meals Last BM: none recorded since admit Wt: 150# (02/17/21); Admit Wt: 150# (02/15/21) Meds noted: probiotics, protonix, NaCl Labs noted: Glu 142(H) Recommend continue current diet or per MD recommendations. RD will follow-up within 7 days.
--- NOTE | 2021-02-19 17:30 | NUR ---
pt laying in bed at this time. pt is confused and alert to person, place. Ambulates. Wrap noted to left arm. pt is calm and cooperative with staff and peers. pt is compliant with meds, vitals and assessments. no agressive behaivors noted. conts on 1,500 cc free water restriction. can make needs known. denies SI. pt rec'd shower this shift. bed alarm in place and active. will cont plan of care.
[2021-02-19 20:00] VITALS: BP 130/63
--- NOTE | 2021-02-19 21:51 | NUR ---
RECEIVED PATIENT IN HIS ROOM SLEEPING, EASILY AROUSED TO TAKE HIS MEDS, NO AGGRESSION NOTED, DENIES SUICIDIAL IDEATIONS. ABLE TO MAKE HIS NEEDS KNOWN. WILL FOLLOW POC
[2021-02-20 06:09] LABS: CALC OSMOLALITY 274 mosm/kg (275-300); CALCIUM 8.8 mg/dL (8.5-10.1); CARBON DIOXIDE 25.7 mmol/L (21.0-32.0); CHLORIDE - SERUM 104 mmol/L (98-107); CREATININE - SERUM 0.8 mg/dL (0.6-1.3); POTASSIUM - SERUM 4.5 mmol/L (3.5-5.1); SODIUM 137 mmol/L (136-145); UREA NITROGEN 17 mg/dL (7-18); eGFR NON AFRICAN AMERICAN > 90 mL/min (90-120)
[2021-02-20 06:14] LABS: GLUCOSE 84 mg/dL (74-106)
[2021-02-20 08:54] VITALS: BP 100/60
--- NOTE | 2021-02-20 13:37 | PN ---
PATIENT:ATILIO DURANT MEDICAL RECORD: [id number] LOCATION:[facility] ADMISSION DATE: 02/15/21 PROGRESS NOTE DATE OF SERVICE: 02/19/2021 SUBJECTIVE: The patient's case was discussed with staff. He has no new complaint. OBJECTIVE: The patient is calmer today. He is still angry with me, but I do not think he recalls the events of yesterday, it is just that he has an emotional memory of being angry with me. He does not threaten to kill me today as he did yesterday. ASSESSMENT: Vascular dementia. PLAN: Current medicines have been reviewed and will be maintained. TRANSINT:[id number] Voice Confirmation ID: [id number] DOCUMENT ID: [id number] RAFY HERNDON MD at 1337 CC: [id number] DICTATION DATE: 02/19/21 1623 MARKETING AND PROMOTIONS MANAGER: 02/19/21 1859 ADM IN [facility] [address] [place] [address]
--- NOTE | 2021-02-20 13:50 | NUR ---
PT C/O OF HEADACHE, DIZZINESS AND FEELING LIKE HE DID WHEN HE WAS HAVING A STROKE. NURSE OBTAINED V/S AND NOTIFIED DEANNA Sanchez APRN OF S/SX. LORENA GARCIA ASSESSED PT AT THIS TIME. VITAL SIGNS: B/P: 117/81, P: 71, R: 20. ONE TIME ORDER: MOTRIN 800 MG ONCE FOR H/A. WILL CONT TO MONITOR.
--- NOTE | 2021-02-20 15:45 | NUR ---
ALERT, CALM, TALKATIVE, COOPERATIVE, NO AGGRESSION NOTED. MEDS ADMIN PER ORDERS WITH COMPLETE COMPLIANCE NOTED. PT. C/O HEATHERHE EARLIER THIS SHIFT AND WAS GIVEN IBUPROFEN. PATIENT NOW STATES THAT HEADACHE IS GONE AND IS APPRECIATIVE OF THE MEDICATIONL CONTINUE PLAN OF CARE OUTLINED.
[2021-02-20 20:00] VITALS: BP 126/63
--- NOTE | 2021-02-20 21:40 | NUR ---
RECEIVED PATIENT IN HIS ROOM SLEEPING, EASILY AROUSED FOR HIS MEDS, HE IS AWAKE, ALERT AND ORIENTED, CAN MAKE NEEDS KNOWN. WILL FOLLOW POC
[2021-02-21 06:09] LABS: CALC OSMOLALITY 276 mosm/kg (275-300); CALCIUM 8.5 mg/dL (8.5-10.1); CARBON DIOXIDE 25.2 mmol/L (21.0-32.0); CHLORIDE - SERUM 103 mmol/L (98-107); CREATININE - SERUM 0.8 mg/dL (0.6-1.3); GLUCOSE 83 mg/dL (74-106); SODIUM 138 mmol/L (136-145); UREA NITROGEN 18 mg/dL (7-18); eGFR NON AFRICAN AMERICAN > 90 mL/min (90-120)
[2021-02-21 09:55] VITALS: BP 121/70
--- NOTE | 2021-02-21 13:20 | NUR ---
PT STANDING AT THE DESK TALKING WITH STAFF. PT IS CALM AND COOPERATIVE WITH STAFF AND PEERS. PT HAS SOME GRANDIOSE THINKING STATING "I HAVE 78,000 DOLLARS IN THE BANK I'M TRYING TO BUY SOME PROPERTY AND I CANT DO IT IN HERE." REDIRECT PT MULTIPLE TIMES. PT IS COMPLIANT WITH MEDS, VITALS AND ASSESSMENTS. CAN MAKE NEEDS KNOWN. AMBULATES. CONFUSED WITH SHORT TERM MEMORY LOSS. WILL CONT PLAN OF CARE.
--- NOTE | 2021-02-21 15:00 | NUR ---
PT STANDING AT DESK REQUESTING TO CALL HIS FARM HAND, DEMANDING TO LEAVE, DEMANDING TO CALL DOCTOR AND WE WERE KIDNAPPING HIM. HOLDING HIM AGAINST HIS WILL. STAFF ATTEMPTED TO REDIRECT BEHAVIORS AT THIS TIME. PT WAS VERY ANXIOUS WANTING TO LEAVE. ATIVAN 0.5 MG AND HALDOL 2 MG IM PRN PER DR. HERNDON ORDER. PT DID NOT TOLERATED WELL. PT REQUIRED MALE ASSISTANCE FOR ENCOURAGEMENT WITH PRN. WILL CONT TO MONITOR.
--- NOTE | 2021-02-21 16:52 | NUR ---
PT RESTING IN BED AT THIS TIME.
[2021-02-21 20:00] VITALS: BP 116/63
--- NOTE | 2021-02-21 20:50 | NUR ---
PT IS ALERT AND ORIENTED TO SELF ONLY. HE IS RECEIVED IN THE HALLWAY OUTSIDE THE NURSES STATION REQUESTING ICE CREAM. HE STATES "I WANT A VALIUM" INFORMED PT THAT HE DOESNT HAVE AN ORDER FOR VALIUM BUT HE DOES HAVE SOME MEDICATIONS ON HIS MAR THAT WILL HELP HIM SLEEP. CALM AND COOPERATIVE WITH STAFF. COMPLIANT WITH ALL MEDICATIONS. EASY TO REDIRECT. NO AGGRESSION NOTED. MONITOR FOR SAFETY.
[2021-02-22 08:07] VITALS: BP 141/79
--- NOTE | 2021-02-22 14:07 | NUR ---
ALERT, CALM, QUIET, PLEASANT THIS SHIFT. NO AGGRESSION OR AGITATION THUS FAR THIS SHIFT. MEDS ADMIN PER ORDERS WITH COMPLETE MED COMPLIANCE NOTED. NO ADVERSE REACTION TO MEDS. CONTINUE PLAN OF CARE, MONITORING FOR AGGRESSION. NEW ORDERS NOTED: DEPAKOTE 250 MG PO BID.
--- NOTE | 2021-02-22 15:59 | NUR ---
PATIENT REFUSED TO GET OUT OF BED AND GO TO DAYROOM WITH PEERS. STATED,"YA'LL ARE HOLDING ME AGAINST MY WILL AND I REFUSE TO GET UP UNTIL YOU LET ME GET OUT OF HERE AND GO HOME! I WILL JUST STAY IN MY BED AND CATCH UP ON MY SLEEP!" STAFF TRIED MULTIPLE TIMES TO GET PATIENT TO GO TO DAYROOM BUT TO NO AVAIL.
[2021-02-22 20:00] VITALS: BP 107/64
--- NOTE | 2021-02-22 20:53 | NUR ---
PT IS ALERT AND ORIENTED TO SELF ONLY. HE IS RECEIVED IN HIS ROOM RESTING CALMLY IN BED WITH EYES OPEN. PROVIDED HS SNACK AND COMPLIANT WITH ALL HS MEDICATIONS. EASY TO REDIRECT. NO AGGRESSION NOTED. WILL MONITOR FOR SAFETY.
[2021-02-23 21:44] VITALS: BP 115/60
--- NOTE | 2021-02-23 23:02 | NUR ---
PT IS ALERT AND ORIENTED TO SELF ONLY. HE IS RECEIVED IN HIS ROOM PLAYING A CARD GAME. CALM AND COOPERATIVE WITH STAFF. COMPLIANT WITH ALL MEDICATIONS. ABLE TO VOICE NEEDS AND WANTS. EASY TO REDIRECT. NO AGGRESSION NOTED.
[2021-02-24 08:00] VITALS: BP 140/71
--- NOTE | 2021-02-24 14:04 | PN ---
PATIENT:ATILIO DURANT MEDICAL RECORD: [id number] LOCATION:[facility] ADMISSION DATE: 02/15/21 PROGRESS NOTE DATE OF SERVICE: 02/20/2021 SUBJECTIVE: The patient's case was discussed with staff. He has no new complaint. OBJECTIVE: The patient is calmer today and has a much better insight about his situation. He is still somewhat somatic and clearly is impaired cognitively, but his behaviors have dramatically improved. ASSESSMENT: Vascular dementia. PLAN: Current medicines will be maintained. TRANSINT:[id number] Voice Confirmation ID: [id number] DOCUMENT ID: [id number] RAFY HERNDON MD at 1404 CC: [id number] DICTATION DATE: 02/20/211801 LABOR AND DELIVERY NURSE: 02/20/21 181 ADM IN [place] [id number] [place] [address]
--- NOTE | 2021-02-24 17:20 | NUR ---
RECEIVED IN HALLWAY OUTSIDE OF NURSES STATION. REPEATEDLY ASKING TO CALL HIS RETAIL CLIENT MANAGER. EASILY AGITATED. REDIRECT AND REORIENT NEEDED. EATING DINNER AT THIS TIME. CONTINUE PLAN OF CARE.
[2021-02-24 22:16] VITALS: BP 113/61
--- NOTE | 2021-02-25 01:32 | NUR ---
B)RECEIVED PATIENT AT THE NURSE'S STATION EATING ICE CREAM. ORIENTED TO PERSON, PLACE AND TIME. RELATED THE REASON FOR HOSPITALIZATION "I DONE SOMETHING STUPID I GUESS." LAUGHS AT INAPPROPRIATE TIMES. TOLD NURSE WHEN ASKED IF HE KNEW WHERE HE WAS "STANDING IN THE HALLWAY OF THIS HOSPITAL" AND LAUGHS. CALM AND COOPERATIVE. I)ADMINISTER MEDS AND MONITOR COMPLIANCE. OBTAIN VERBAL CONTRACT FOR NO SELF HARM. R)MED COMPLIANT. CONTRACTS VERBALLY FOR NO SELF HARM. CURRENTLY DENIES SI. P)CONTINUE POC AND PROVIDE SAFE ENVIRONMENT.
--- NOTE | 2021-02-25 08:00 | NUR ---
REC'D PT IN HALLWAY BY NURSE STATION. AWAKE AND ALERT X 3. CALM AND COOPERATIVE WITH ASSESSMENT. PRESCRIBED MEDS PROVIDED. MED COMPLIANT. DENIES SI AT THIS TIME. NO OTHER BEHAVIORS NOTED. WILL CPOC.
--- NOTE | 2021-02-25 16:48 | PN ---
PATIENT:ATILIO DURANT MEDICAL RECORD: [id number] LOCATION:[facility] ADMISSION DATE: 02/15/21 PROGRESS NOTE DATE OF SERVICE: 02/24/2021 SUBJECTIVE: The patient's case was discussed with staff. He has no new complaint. OBJECTIVE: The patient's behavior is a little better. He is not quite as disruptive as he has previously been. ASSESSMENT: Dementia. PLAN: Current medicines have been reviewed. His long-term prognosis is guarded. TRANSINT:[id number] Voice Confirmation ID: [id number] DOCUMENT ID: [id number] RAFY HERNDON MD at 1648 CC: [id number] DICTATION DATE: 02/24/21 174 VARNISHER: 02/25/21 0054 ADM IN [place] [id number] [place] [address]
[2021-02-25 20:00] VITALS: BP 110/63
--- NOTE | 2021-02-25 20:14 | NUR ---
RECEIVED IN BEDROOM. RESTING IN BED WITH EYES CLOSED. RESPONSD TO VOICE. CALM AND COOPERATIVE WITH CARE AND ASSESSMENT. NO STATEMENTS OF SELF HARM VOICED. NO SIGNS OF AGGRESSION. REDIRECT AND REORIENT NEEDED. CONTINUES TO REST QUIETLY IN BED. CONITNUE PLAN OF CARE.
[2021-02-26 08:16] VITALS: BP 120/77
[2021-02-26 08:16] LABS: CALC OSMOLALITY 274 mosm/kg (275-300); CALCIUM 8.7 mg/dL (8.5-10.1); CARBON DIOXIDE 27.2 mmol/L (21.0-32.0); CHLORIDE - SERUM 103 mmol/L (98-107); CREATININE - SERUM 0.9 mg/dL (0.6-1.3); GLUCOSE 81 mg/dL (74-106); MAGNESIUM - SERUM 2.2 mg/dL (1.8-2.4); POTASSIUM - SERUM 4.3 mmol/L (3.5-5.1); SODIUM 136 mmol/L (136-145); UREA NITROGEN 25 mg/dL (7-18); eGFR NON AFRICAN AMERICAN 89 mL/min (90-120)
--- NOTE | 2021-02-26 10:32 | NUR ---
Received patient sitting in a chair by nurses station. Calm and cooperative with assessment. Awake and alert x3. Prescribed medications provided as ordered. Med compliant at this time. Patient denies suicidal ideation at this time. No other behaviors noted at this time. Redirect and reorient as needed. Will continue plan of care.
--- NOTE | 2021-02-26 11:02 | NUR ---
Nutrition Re-Assessment Diet: Regular, 1500mL fluid restriction PO intake: 100% x last 9 meals Last BM: 02/23/21 Wt: 152# (02/23/21); Admit Wt: 150# (02/15/21) Meds noted: NaCl Labs reviewed Estimated nutrition needs and nutrition diagnosis remain unchanged from initial nutrition assessment at this time. Patient is progressing towards meeting nutrition goals at this time. Recommendations/Interventions: -Recommend continue current diet. Fluid restrictions per MD. -Will continue to monitor PO intake and wt trend. -RD will follow-up within 7 days.
--- NOTE | 2021-02-26 16:20 | PN ---
PATIENT:ATILIO DURANT MEDICAL RECORD: [id number] LOCATION:[facility] ADMISSION DATE: 02/15/21 PROGRESS NOTE DATE OF SERVICE: 02/25/2021 SUBJECTIVE: The patient's case was discussed with staff. He has no new complaint. OBJECTIVE: The patient has no thoughts of harming himself or others. He is sleeping and eating well. ASSESSMENT: Dementia. PLAN: The patient is ready for discharge and may be discharged as soon as appropriate outpatient living arrangements can be made. TRANSINT:[id number] Voice Confirmation ID: [id number] DOCUMENT ID: [id number] RAFY HERNDON MD at 1620 CC: [id number] DICTATION DATE: 02/25/21 170 REQUIREMENTS ENGINEER: 02/26/21 0019 ADM IN [facility] [address] [place] [address]
[2021-02-26 20:00] VITALS: BP 117/66
--- NOTE | 2021-02-26 21:18 | NUR ---
PT IS ALERT AND ORIENTED TO SELF, PLACE AND TIME. RECEIVED IN HIS ROOM CALM AND COOPERATIVE WITH STAFF. ABLE TO VOICE NEEDS AND WANTS. COMPLIANT WITH ALL MEDICATIONS. EASY TO REDIRECT. NO AGGRESSION NOTED.
[2021-02-27 08:51] VITALS: BP 129/72
[2021-02-27] MEDS ORDERED: GEODON20 MG PO (10:40)
[2021-02-27] MEDS ORDERED: NAMENDA5 MG PO (10:40)
[2021-02-27] MEDS ORDERED: ZOLOFT50 MG PO (10:40)
--- NOTE | 2021-02-27 10:50 | NUR ---
DAWN Eriberto came to unit to mendoza pt at this time. pt alert and oriented 4x. pt gave complete history with dates. pt completed assessment and scored high on MMSE. APS reported to staff pt has an arrest warrent at this time. he will d/c pt to outside to [facility] Police officers. Hardik Villagomez, 177. pt did not resist and understood conditions. all belongings sent with pt at this time. Pt d/c at this time.
--- NOTE | 2021-02-27 14:34 | NUR ---
Rec'd this patient this am ambulatory in [facility]. He is A/O with some confusion. He is med compliant and takes his meds whole without difficulty. He attended group therapy/activities but did not participate. He layed on the softa in the dayroom with his head and body covered.He denies any suicidal ideation or self harm and has shown no aggression to staff or other patients. He is on a 1500ml free water restriction.
--- NOTE | 2021-02-27 16:13 | PN ---
PATIENT:ATILIO DURANT MEDICAL RECORD: [id number] LOCATION:[facility] ADMISSION DATE: 02/15/21 PROGRESS NOTE DATE OF SERVICE: 02/26/2021 SUBJECTIVE: The patient's case was discussed with staff. He has no new complaint. OBJECTIVE: The patient has not been disruptive. He is tolerating his medicines well. ASSESSMENT: Vascular dementia. PLAN: The patient is going to be seen by adult protective services. He will not be discharged until after they have interviewed and made a decision about whether or not to take custody. TRANSINT:[id number] Voice Confirmation ID: [id number] DOCUMENT ID: [id number] RAFY HERNDON MD at 1613 CC: [id number] DICTATION DATE: 02/26/21 1639 BRANCH STORE MANAGER: 02/26/21 2343 DIS IN 02/27/21 [place] [id number] [place] [address]
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
== END 2021-02-27 11:30 | DRG 57 ==
LOC: D.PSYCH 17:06
PROVIDERS: Internal Medicine; ADMIT Psychiatry & Neurology Psychiatry; ATTEND Psychiatry & Neurology Psychiatry
DX: I69.919 Unspecified symptoms and signs involving cognitive functions following unspecified cerebrovascular disease (principal); F01.51 Vascular dementia, unspecified severity, with behavioral disturbance; E87.1 Hypo-osmolality and hyponatremia; E22.2 Syndrome of inappropriate secretion of antidiuretic hormone; F32.9 Major depressive disorder, single episode, unspecified; R53.1 Weakness; S52.202D Unspecified fracture of shaft of left ulna, subsequent encounter for closed fracture with routine healing; F43.10 Post-traumatic stress disorder, unspecified